=== PATIENT | male | born 1980 | race Caucasian/White ===

== ENCOUNTER 2020-12-01 20:45 | Emergency (ER) | payer OTHER ==
[~2020-12-01] VITALS: Ht 170.2 cm; Wt 72.7 kg
[2020-12-01 21:25] VITALS: BP 130/79
[2020-12-01] MEDS ORDERED: METH4TAB81 PO (22:56)
== END 2020-12-01 23:09 | disposition home or self-care (01) ==
LOC: ER 20:46
DX: M72.2 Plantar fascial fibromatosis (principal); M79.671 Pain in right foot; Z79.899 Other long term (current) drug therapy
CPT/HCPCS: 73630; 99283